=== PATIENT | male | born 1965 | race Caucasian/White ===

== ENCOUNTER 2019-07-31 15:15 | Emergency (ER) | payer OTHER ==
[2019-07-31 15:48] VITALS: TEMP 98; BMI 22.3
[2019-07-31] MEDS ORDERED: NITROGLYCERIN SUBLINGUAL 1/150 0.4 MG TAB SL ONE (15:58)
[2019-07-31] MEDS ORDERED: ASPIRIN 81 MG CHEWABLE TABLETS PO ONE (15:58)
[2019-07-31] MEDS ORDERED: NITROGLYCERIN SUBLINGUAL 1/150 0.4 MG TAB ONE (16:02)
[2019-07-31] MEDS ORDERED: ASPIRIN 81 MG CHEWABLE TABLETS ONE (16:02)
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
[2019-07-31 16:29] LABS: BASO % 0.9 % (0-2.0); EOS % 3.8 % (0-4.5); HEMATOCRIT 41.8 % (35.4-49); HEMOGLOBIN 14.2 GM/dl (11.7-16.9); LYMPH % 31.5 % (8-40); MCH 31.5 pg (25.7-33.7); MEAN CELL VOLUME 92.5 fl (80-96); MEAN PLT VOLUME 9.8 fl (7.5-11.1); MONO % 6.5 % (3.8-10.2); NEUT % 57.3 % (42.8-82.8); PLATELET COUNT 223 K/MM3 (134-434); RBC 4.52 M/mm3 (4.00-5.60); RDW 11.4 % (11.9-15.9); WHITE BLOOD COUNT 5.1 K/mm3 (4.0-10.8)
[2019-07-31 16:35] LABS: INR 1.2 (0.82-1.09); PROTHROMBIN TIME (PATIENT) 13.4 SEC (10.2-13.0)
[2019-07-31 16:39] LABS: BILIRUBIN,TOTAL 0.9 mg/dl (0.2-1); CALCIUM 8.8 mg/dl (8.5-10); CREATININE 0.9 mg/dl (0.55-1.3); POTASSIUM 3.9 mmol/L (3.5-5.1); TOT PROT 6.8 g/dl (6.4-8.2)
[2019-07-31 18:20] VITALS: BP 116/85; PULSE 62
--- NOTE | 2019-08-01 11:34 | EKG ---
Test Reason : Blood Pressure : / mmHG Vent. Rate : 057 BPM Atrial Rate : 057 BPM P-R Int : 156 ms QRS Dur : 110 ms QT Int : 406 ms P-R-T Axes : 029 -63 053 degrees QTc Int : 395 ms SINUS BRADYCARDIA INCOMPLETE RIGHT BUNDLE BRANCH BLOCK LEFT ANTERIOR FASCICULAR BLOCK ABNORMAL ECG NO PREVIOUS ECGS AVAILABLE Confirmed by CHECO OWUSU MD ([id number]) on 08/01/2019 11:34:03 AM Referred By: Confirmed By:CHECO OWUSU MD
== END 2019-07-31 18:12 | disposition home or self-care (01) ==
LOC: FER 15:15
DX: M79.10 Myalgia, unspecified site (principal)
CPT/HCPCS: 36415; 71045-TC-FY; 80053; 82550; 82553; 84484; 85025; 85610; 93005; 99284-25

== ENCOUNTER 2019-08-06 11:39 | Emergency (ER) | payer OTHER ==
--- NOTE | 2019-08-06 11:50 | PDOC ---
History of Present Illness - General Chief Complaint: Respiratory Stated Complaint: FLU LIKE, FEVER, DRY COUGH BODY ACHES Time Seen by Provider: 08/06/19 11:49 History Source: Patient - History of Present Illness Initial Comments: 08/06/19 18:13 54M w/no PMH, recent evaluation for chest pain, presenting with 3 days of shortness of breath, cough, fatigue, and fevers. He reports that his chest discomfort is unchanged since his evaluation 4 days ago, and he has an appointment with a water filtration technician next week. He reports having a fever to 102 at home. He reports that his symptoms began after his prior evaluation here. He reports that his chest discomfort worsens when he breathes in deeply. No sick contacts. He reports traveling back from [facility] (15 hour flight) two months ago. Past History - Past Medical History Allergies/Adverse Reactions: Allergies Allergy/AdvReac Type Severity Reaction Status Date / Time No Known Allergies Allergy Verified 08/06/19 11:41 Home Medications: Ambulatory Orders Pheniramine/P-Eph/Acetaminophn [Theraflu Flu & Sore Throat] 1 each PO PRN COPD: No - Surgical History Abdominal Surgery: (RT INGUINAL HERNIA) - Psycho Social/Smoking Cessation Hx Smoking History: Never smoked Hx Alcohol Use: Yes (OCCASIONALLY) Drug/Substance Use Hx: No Review of Systems - Review of Systems Able to Perform ROS?: Yes Comments:: 08/06/19 18:19 ROS: GENERAL/CONSTITUTIONAL: Fever, chills, generalized weakness. HEAD, EYES, EARS, NOSE AND THROAT: No change in vision. No ear pain or discharge. No sore throat. CARDIOVASCULAR: Shortness of breath. No chest pain RESPIRATORY: Cough, wheezing, chest tightness. No hemoptysis. GASTROINTESTINAL: No nausea, vomiting, diarrhea or constipation. GENITOURINARY: No dysuria, frequency, or change in urination. MUSCULOSKELETAL: No joint or muscle swelling or pain. No neck or back pain. SKIN: No rash NEUROLOGIC: No headache, vertigo, loss of consciousness, or change in strength/ sensation. ENDOCRINE: No increased thirst. No abnormal weight change HEMATOLOGIC/LYMPHATIC: No anemia, easy bleeding, or history of blood clots. ALLERGIC/IMMUNOLOGIC: No hives or skin allergy. *Physical Exam - Physical Exam 08/06/19 18:22 PE: GENERAL: Awake, alert, and fully oriented, in no acute distress HEAD: No signs of trauma, normocephalic, atraumatic EYES: PERRLA, EOMI, sclera anicteric, conjunctiva clear ENT: Auricles normal inspection, hearing grossly normal, nares patent, oropharynx clear without exudates. Moist mucosa NECK: Normal ROM, supple, no lymphadenopathy, JVD, or masses LUNGS: No distress, speaks full sentences, clear to auscultation bilaterally HEART: Regular rate and rhythm, normal S1 and S2, no murmurs, rubs or gallops, peripheral pulses normal and equal bilaterally. ABDOMEN: Soft, nontender, normoactive bowel sounds. No guarding, no rebound. No masses EXTREMITIES : Normal inspection, Normal range of motion, no edema. No clubbing or cyanosis NEUROLOGICAL: Cranial nerves II through XII grossly intact. Normal speech, normal gait, no focal sensorimotor deficits SKIN: Warm, Dry, normal turgor, no rashes or lesions noted ED Treatment Course - LABORATORY CBC & Chemistry Diagram: 08/06/19 13:40 08/06/19 13:40 Medical Decision Making - Medical Decision Making 08/06/19 18:20 54M w/no PMH p/w 3 days of cough, fatigue, shortness of breath, fever, chills, generalized muscle aches c/w influenza vs other viral URI. PE unlikely, but possible given relatively recent travel, and pleuritic chest pain. Plan: Influenza A/B Swab D-dimer CBC CMP Cardiac Profile EKG CXR Dispo: Discharge pending labs --- Influenza A - Positive. Results discussed with patient. Influenza B - negative CBC, CMP - wnl Troponin - negative EKG - NSR, no axis deviation, no ischemic changes noted CXR - negative for acute process D-dimer - negative Plan for discharge. Discharge - Discharge Information Problems reviewed: Yes Clinical Impression/Diagnosis: Influenza A Condition: Stable Disposition: HOME - Admission No - Follow up/Referral - Patient Discharge Instructions Patient Printed Discharge Instructions: DI for Influenza -- Adult Additional Instructions: You were seen in the ER for cough, body aches, fevers. Your influenza test came back positive for Influenza A. (The flu). Please be sure to remain hydrated and rest - the symptoms should resolve on their own with time. Take over the counter medication as needed for symptom control, tylenol can help control fever. Please see your primary care provider as soon as possible, in the next 2- 3 days. Return to the ER if you are unable to control your fever, develop chest pain, shortness of breath, weakness, fatigue, nonstop nausea/vomiting. - Post Discharge Activity
[2019-08-06 11:58] VITALS: BMI 22.3
[2019-08-06] MEDS ORDERED: ACETAMINOPHEN 325 MG TABLET (FP) PO ONE (12:29)
[2019-08-06] MEDS ORDERED: ACETAMINOPHEN 325 MG TABLET (FP) ONE (12:50)
--- NOTE | 2019-08-06 13:59 | PDOC ---
Attending Attestation - Resident Resident Name: Mateo Rodríguez - ED Attending Attestation I have performed the following: I have examined & evaluated the patient, The case was reviewed & discussed with the resident, I agree w/resident's findings & plan, Exceptions are as noted - HPI HPI: 08/06/19 13:58 54 M with no PMH presents to ED with fevers, cough, and chest pain. Pt states that he first started having chest pain a week ago. He came to this ED and had bloodwork, EKG, and CXR that were unremarkable. Pt arranged f/u with Dr. Tilley for this Thursday. However, over the past 3 days, pt developed fevers and cough as well. Pt denies any SOB but states that his chest pain is worse with deep inspiration and feels like a pressure. Pt denies leg swelling/calf pain. He recently traveled to and from [facility] in June. - Physicial Exam PE: 08/06/19 14:00 "GENERAL: Awake, alert, and fully oriented, in no acute distress. HEAD: No signs of trauma EYES: PERRLA, EOMI, sclera anicteric, conjunctiva clear ENT: Auricles normal inspection, hearing grossly normal, nares patent, oropharynx clear without exudates. Moist mucosa NECK: Nontender, no stepoffs, Normal ROM, supple, no lymphadenopathy, JVD, or masses LUNGS: Breath sounds equal, clear to auscultation bilaterally. No wheezes, and no crackles HEART: Regular rate and rhythm, normal S1 and S2, no murmurs, rubs or gallops ABDOMEN: Soft, nontender, normoactive bowel sounds. No guarding, no rebound. No masses EXTREMITIES: Normal range of motion, no edema. No clubbing or cyanosis. No cords, erythema, or tenderness NEUROLOGICAL: Cranial nerves II through XII intact. 5/5 strength and sensation in all extremities, Normal speech, normal gait, normal cerebellar function SKIN: Warm, Dry, normal turgor, no rashes or lesions noted. - Medical Decision Making 08/06/19 14:00 54 M with cough, fevers, chest pain. Likely viral URI. Pt had cardiac work up last week that was negative. However, given recent travel to [facility] and pleuritic nature of pain, will r/o PE with d-dimer. - Labs, trop, Ddimer - Flu swab - Tylenol 08/06/19 16:07 Labs wnl Dimer negative EKG unchanged, trop negative Flu A + Pt outside window for starting tamiflu Pt is well appearing, with normal vitals. Clinically stable for DC at this time. I discussed the physical exam findings, ancillary test results and final diagnoses with the patient. I answered all of the patient's questions. The patient was satisfied with the care received and felt comfortable with the discharge plan and treatment plan. The patient agrees to follow up with the primary care physician within 24-72 hours.
[2019-08-06 14:04] LABS: ALBUMIN 3.6 g/dl (3.4-5.0); ALK PHOS 40 U/L (45-117); ANION GAP 7 MMOL/L (8-16); BASO % 1.2 % (0-2.0); BILIRUBIN,TOTAL 0.7 mg/dl (0.2-1); CHLORIDE 97 mmol/L (98-107); CO2 28 mmol/L (21-32); CREATININE 0.9 mg/dl (0.55-1.3); EOS % 0.3 % (0-4.5); GLUCOSE,RANDOM 105 mg/dl (74-106); HEMATOCRIT 41.5 % (35.4-49); HEMOGLOBIN 13.7 GM/dl (11.7-16.9); LYMPH % 25.9 % (8-40); MCH 30.5 pg (25.7-33.7); MEAN CELL VOLUME 92.5 fl (80-96); MONO % 10.9 % (3.8-10.2); NEUT % 61.7 % (42.8-82.8); PLATELET COUNT 185 K/MM3 (134-434); POTASSIUM 3.6 mmol/L (3.5-5.1); RBC 4.49 M/mm3 (4.00-5.60); RDW 11.5 % (11.9-15.9); SGOT/AST 27 U/L (15-37); SGPT/ALT 25 U/L (13-61); SODIUM 132 mmol/L (136-145); TOT PROT 6.4 g/dl (6.4-8.2)
[2019-08-06 14:09] LABS: INR 1.37 (0.82-1.09); PROTHROMBIN TIME (PATIENT) 15.2 SEC (10.2-13.0)
[2019-08-06 15:08] VITALS: BP 115/79; PULSE 65; TEMP 100.2
--- NOTE | 2019-08-06 23:24 | EKG ---
Test Reason : Blood Pressure : / mmHG Vent. Rate : 063 BPM Atrial Rate : 063 BPM P-R Int : 148 ms QRS Dur : 110 ms QT Int : 396 ms P-R-T Axes : 031 -73 063 degrees QTc Int : 405 ms NORMAL SINUS RHYTHM LEFT ANTERIOR FASCICULAR BLOCK ABNORMAL ECG WHEN COMPARED WITH ECG OF 31-JUL-2019 15:20, NO SIGNIFICANT CHANGE WAS FOUND Confirmed by CHECO OWUSU MD ([id number]) on 08/06/2019 11:24:10 PM Referred By: JEMIMA GEORGE Confirmed By:CHECO OWUSU MD
== END 2019-08-06 16:43 | disposition home or self-care (01) ==
LOC: FER 11:39
DX: J09.X2 Influenza due to identified novel influenza A virus with other respiratory manifestations (principal); K46.9 Unspecified abdominal hernia without obstruction or gangrene
CPT/HCPCS: 36415; 80053; 82550; 82553; 84484; 85025; 85379; 85610; 85730; 87804; 93005; 99282-25

== ENCOUNTER 2022-07-24 04:14 | Day surgery (SDC) | payer OTHER ==
[2022-07-23 08:58] VITALS: BMI 22.3
[2022-07-24 10:19] VITALS: BP 115/55; PULSE 57; RESP 18; TEMP 98
== END 2022-07-24 10:16 | disposition home or self-care (01) ==
LOC: JASU-ENDO 04:14
PROVIDERS: ATTEND Internal Medicine Gastroenterology
PROC: 0DJD8ZZ Inspection of Lower Intestinal Tract, Via Natural or Artificial Opening Endoscopic (ICD-10-PCS; principal; 2022-07-24 09:30)
DX: Z12.11 Encounter for screening for malignant neoplasm of colon (principal); K64.8 Other hemorrhoids